=== PATIENT | male | born 1950 | race Caucasian/White ===

== ENCOUNTER 2021-03-12 17:48 | Inpatient (IN) | payer MEDICARE, OTHER ==
[~2021-03-12] VITALS: Ht 172.7 cm; Wt 81.6 kg
[~2021-03-12 17:48] MED LIST: ECOTRIN81 MG PO; IMDUR ER TAB 3030 MG PO; LOPRESSOR 25 MG25 MG PO; NITROSTAT0.4 MG SL
[2021-03-12 19:47] LABS: HEMOGLOBIN 12.9 gm/dl (14.0-17.5); RED BLOOD COUNT 4.37 M/UL (4.20-5.50); WHITE BLOOD COUNT 10.4 K/UL (4.5-11.0)
[2021-03-12 21:08] LABS: BUN/CREATININE RATIO 30 (0-10)
[2021-03-13 05:13] LABS: HEMOGLOBIN 11.7 gm/dl (14.0-17.5); RED BLOOD COUNT 3.95 M/UL (4.20-5.50); WHITE BLOOD COUNT 10.1 K/UL (4.5-11.0)
[2021-03-13 05:36] LABS: BUN/CREATININE RATIO 28 (0-10)
[2021-03-13] MEDS ORDERED: LIPITOR TAB 2020 MG PO (19:00)
[2021-03-13 22:33] LABS: HEMOGLOBIN 10.6 gm/dl (14.0-17.5)
[2021-03-14 06:01] LABS: HEMOGLOBIN 11.3 gm/dl (14.0-17.5); RED BLOOD COUNT 3.82 M/UL (4.20-5.50); WHITE BLOOD COUNT 10.2 K/UL (4.5-11.0)
[2021-03-14 06:12] LABS: BUN/CREATININE RATIO 23 (0-10)
--- NOTE | 2021-03-14 06:24 | NUR ---
OUTPUT FROM [facility] 34,450ML INTAKE FROM [facility] 21,000 ML
[2021-03-14 16:27] LABS: HEMOGLOBIN 10.6 gm/dl (14.0-17.5); RED BLOOD COUNT 3.55 M/UL (4.20-5.50); WHITE BLOOD COUNT 10.6 K/UL (4.5-11.0)
--- NOTE | 2021-03-14 22:21 | NUR ---
REPORT CALLED TO DEAN JORDAN AT [facility] AT 1908.
--- NOTE | 2021-03-15 00:38 | NUR ---
OUTPUT FROM [facility] 18,700 ML
== END 2021-03-14 22:40 | disposition short-term general hospital (02) | DRG 687 ==
LOC: ER1 17:48 → M/S 20:56 → CDU 20:56 → M/S 03-13 02:30
PROVIDERS: Family Medicine; Physician Assistant; Physician Assistant Medical; ADMIT Internal Medicine
DX: D49.4 Neoplasm of unspecified behavior of bladder (principal); D62 Acute posthemorrhagic anemia; N32.89 Other specified disorders of bladder; N21.0 Calculus in bladder; Z20.822 Contact with and (suspected) exposure to COVID-19; R31.0 Gross hematuria; I25.10 Atherosclerotic heart disease of native coronary artery without angina pectoris; N40.0 Benign prostatic hyperplasia without lower urinary tract symptoms; F17.210 Nicotine dependence, cigarettes, uncomplicated; H91.90 Unspecified hearing loss, unspecified ear; F03.90 Unspecified dementia, unspecified severity, without behavioral disturbance, psychotic disturbance, mood disturbance, and anxiety; I95.9 Hypotension, unspecified; N20.0 Calculus of kidney; R79.89 Other specified abnormal findings of blood chemistry; Z95.1 Presence of aortocoronary bypass graft; Z80.0 Family history of malignant neoplasm of digestive organs
CPT/HCPCS: 36415; 80048; 80053; 81001; 83735; 85014; 85018; 85025; 85027; 85610; 87086; 99285; G0378; J7030; U0002